=== PATIENT | male | born 1985 | race Caucasian/White ===

== ENCOUNTER 2017-01-28 04:23 | Emergency (ER) | payer OTHER ==
[2017-01-28] MEDS ORDERED: GLUCAGON HCL 1 MG VIAL IM ONE (05:01)
[2017-01-28] MEDS ORDERED: GLUCAGON HCL 1 MG VIAL ONE (05:01)
[2017-01-28] MEDS ORDERED: NITROGLYCERIN 0.4 MG BTL SL ONE (05:27)
--- NOTE | 2017-01-28 05:43 | EDPHY ---
H & P Stated Complaint: steak stuck in throat for 8 hr Time Seen by Provider: 01/28/17 04:45 HPI/ROS: HPI The patient presents with foreign body sensation in his chest. He ate a piece of steak about 8 hr ago and felt that it was stuck in his midesophagus. He went to bed, hoping his symptoms would subside, however they did not and he awoke at 2:00 a.m. with the same feeling. He feels that the steak has migrated a bit down his esophagus. He tried drinking a Coke at home without any improvement in his symptoms. He has not been able to tolerate his secretions and has been spitting up saliva and vomiting. He has history of similar episodes, though this is the most severe. He has not been evaluated by GI.. REVIEW OF SYSTEMS Constitutional: No fever, no chills. Eyes: No discharge. ENT: No sore throat. Cardiovascular: No chest pain, no palpitations. Respiratory: No cough, no shortness of breath. Gastrointestinal: No abdominal pain, no vomiting. Genitourinary: No hematuria. Musculoskeletal: No back pain. Skin: No rashes. Neurological: No headache. PMHx: Healthy Soc Hx: Lives in [place] PHYSICAL General Appearance: Alert, no distress, spitting into an emesis basin Eyes: Pupils equal and round no pallor or injection ENT, Mouth: Mucous membranes moist Respiratory: There are no retractions, lungs are clear to auscultation Cardiovascular: Regular rate and rhythm Gastrointestinal: Abdomen is soft and non-tender, no masses, bowel sounds normal Neurological: A&O, moves all extremities Skin: Warm and dry, no rashes Musculoskeletal: Neck is supple non tender Extremities: symmetrical, full range of motion Psychiatric: Patient is oriented X 3, there is no agitation Source: Patient Exam Limitations: No limitations - Personal History Current Tetanus/Diphtheria Vaccine: Unsure Current Tetanus Diphtheria and Acellular Pertussis (TDAP): Unsure - Medical/Surgical History Hx Asthma: No Hx Chronic Respiratory Disease: No Hx Diabetes: No Hx Cardiac Disease: No Hx Renal Disease: No Hx Cirrhosis: No Hx Alcoholism: No Hx HIV/AIDS: No Hx Splenectomy or Spleen Trauma: No - Social History Smoking Status: Never smoked Constitutional: Initial Vital Signs Temperature (C) 36.6 C 01/28/17 04:26 Heart Rate 53 L 01/28/17 04:26 Respiratory Rate 19 01/28/17 04:26 Blood Pressure 143/90 H 01/28/17 04:26 O2 Sat (%) 98 01/28/17 04:26 O2 Delivery Mode Room Air Allergies/Adverse Reactions: No Known Allergies Allergy (Unverified 01/28/17 04:25) Home Medications: Medication Instructions Recorded NK [No Known Home Meds] 01/28/17 Medical Decision Making Differential Diagnosis: 31-year-old male with concern for esophageal foreign body, eating a piece of steak 8 hr ago which he feels is lodged in his esophagus. Here, he is unable to tolerate his secretions. He was initially given a carbonated beverage without any improvement. He then received a dose of glucagon 1 mg IM. This did not seem to help his symptoms. He was given nitroglycerin 0.5 mL sublingually and this induced vomiting and he was able to procure the piece of steak. Afterwards he was able to tolerate fluids without difficulty. He could be suffering from esophageal stricture, verses achalasia, verses esophageal spasm. I have advised him that he should follow up with Gastroenterology so further testing can be obtained to elucidate the cause of his symptoms. He is in agreement with this plan and will be discharged home. - Data Points Medications Given: Discontinued Medications Glucagon (Glucagon) 1 mg IM EDNOW ONE Stop: 01/28/17 05:02 Last Admin: 01/28/17 05:07 Dose: 1 mg Nitroglycerin (Nitrostat) 0.4 mg SL EDNOW ONE Stop: 01/28/17 05:28 Last Admin: 01/28/17 05:30 Dose: 0.4 mg Departure - Departure Disposition: Home, Routine, Self-Care Clinical Impression: Food impaction of esophagus Qualifiers: Encounter type: initial encounter Qualified Code(s): T18.128A - Food in esophagus causing other injury, initial encounter Condition: Good Instructions: Esophageal Foreign Body (ED) Additional Instructions: Please return to the emergency department if your worse in any way. Otherwise I recommend that you follow up with Gastroenterology for further evaluation of your esophagus. Referrals: Gastroenterology [facility] [Provider Group] - As per Instructions
[2017-01-28 05:54] VITALS: BP 134/83; PULSE 64; RESP 16; TEMP 98.1; O2SAT 96
== END 2017-01-28 05:53 | disposition home or self-care (01) ==
DX: T18.128A Food in esophagus causing other injury, initial encounter (principal); X58.XXXA Exposure to other specified factors, initial encounter
CPT/HCPCS: J1610